=== PATIENT | male | born 2005 | race Caucasian/White ===

== ENCOUNTER 2023-10-24 10:35 | Emergency (ER) | payer SELFPAY ==
[2023-10-24 10:39] VITALS: BP 130/71; PULSE 79; TEMP 37.2; O2SAT 98; BMI 20.1
--- NOTE | 2023-10-24 10:41 | ECG_ITS ---
[facility] Test Date: 2023-10-24 Pat Name: Paresh Hoffmann Department: Room: - Gender: Male [employer] Operator: : 2005 Requested By: [id number] Order Number: [id number] Reading MD: PARESH MENEZES Measurements Intervals [place] Rate: 74 P: 38 [place]: 124 QRS: 92 QRSD: 96 T: 67 QT: 360 QTc: 387 Interpretive Statements 1100 Sinus rhythm 2440 Incomplete right bundle branch block 7102 Moderate right axis deviation 9130 borderline ECG No previous ECG available for comparison Electronically Signed On 10-25-2023 5:23:42 EDT by PARESH MENEZES
[2023-10-24 10:59] LABS: Basophils Percent Auto 0.3 % (0.2-2.0); Eosinophils Percent Auto 0.5 % (0.9-7.0); Hematocrit 41.6 % (42.0-54.0); Hemoglobin 14.2 g/dL (14.0-18.0); Immature Granulocytes Abs Auto 0.01 10^3/uL (0.00-0.03); Immature Granulocytes Pct Auto 0.1 % (0.0-0.5); Lymphocytes Absolute Auto 1.5 10^3/uL (1.2-3.8); Lymphocytes Percent Auto 16.8 % (20.5-60.0); Mean Corpuscular HGB Conc 34.1 g/dL (29.9-35.2); Mean Corpuscular Hemoglobin 31.3 pg (25.9-34.0); Mean Corpuscular Volume 91.8 fL (80.0-94.0); Mean Platelet Volume 9.8 fL (9.5-13.5); Monocytes Absolute Auto 0.6 10^3/uL (0.3-0.8); Monocytes Percent Auto 6.5 % (1.7-12.0); Neutrophils Absolute Auto 6.7 10^3/uL (1.4-6.5); Neutrophils Percent Auto 75.8 % (43.0-75.0); Platelet Count 231 10^3/uL (150-450); Red Blood Count 4.53 10^6/uL (4.70-6.10); Red Cell Distribution Width 11.9 % (11.0-15.0); White Blood Count 8.8 10^3/uL (4.0-11.0)
[2023-10-24 11:15] LABS: Alanine Aminotransferase 21 U/L (16-63); Albumin Globulin Ratio 1.3; Alkaline Phosphatase 65 U/L (46-116); Anion Gap 14.8; Aspartate Amino Transferase 14 U/L (15-37); BUN Creatinine Ratio 10.3; Bilirubin Total 1.2 mg/dL (0.2-1.0); Calcium 8.7 mg/dL (8.5-10.1); Carbon Dioxide 28.7 mmol/L (21.0-32.0); Chloride 102 mmol/L (98-107); Estimated GFR (African America >60 (>=60); Estimated GFR (Non-African Ame >60 (>=60); Globulin 3.2 g/dL; Glucose 113 mg/dL (74-106); Potassium 3.5 mmol/L (3.5-5.1); Sodium 142 mmol/L (136-145); Total Protein 7.2 g/dL (6.4-8.2)
--- NOTE | 2023-10-24 12:20 | ED.GENADUL1 ---
HPI HPI - General Adult General Chief complaint: Psychiatric Symptoms Stated complaint: PSYCHIATRICS SYMPTOMS Time Seen by Provider: 10/24/23 10:41 Source: patient Mode of arrival: ambulance Limitations: no limitations History of Present Illness HPI narrative: Patient presents to ED from Home. He called EMS because he was cutting his wrists today and did not want to escalate even further. He states he is not really suicidal he just has anger issues and he has been cutting recently to help release his anger. He said he used to punch things and now he is resorted into cutting. He cut his arm and his thigh but only superficially. Bleeding is controlled. He denies any ingestion. He states he does not have any psychiatric diagnosis. He said about a year ago he tried to hang himself but the rope broke but he did not seek any care at that time. Patient states he thinks he may be bipolar but he is unsure. He said he has never been to a doctor for this. He is alert and oriented and cooperative and calm at this time. I told him most likely he will need to be admitted somewhere for further assessment and psychiatric care. He is comfortable with that plan. Related Data Allergies Allergy/AdvReac Type Severity Reaction Status Date / Time No Known Drug Allergies Allergy Verified 10/24/23 10:38 Opioid HPI Opioid Management Most Recent Opioid Data: Ur Phencyclidine Scrn Negative (NEGATIVE) 10/24/23 12:35 Review of Systems ROS Status of ROS 10 or more systems reviewed and unremarkable except as noted in history and below Exam Narrative Exam Narrative: Time Seen: [] Vital Signs: [Per nurse's notes.] General: [Alert] Skin: [Warm, dry, no rash.]Patient has superficial lacerations on his left wrist and Left thigh. Bleeding controlled nothing needs stitches Head: [Normocephalic, atraumatic.] Neck: [Supple, trachea midline.] Eye: [Pupils are equal, round and reactive to light, extraocular movements are intact, normal conjunctiva.] Ears, nose, mouth and throat: oral mucosa moist. Cardiovascular: [Regular rate and rhythm, no murmur.] Respiratory: [Lungs are clear to auscultation, respirations are non-labored, breath sounds are equal.] Chest wall: [No tenderness, no deformity.] Gastrointestinal: [Soft, nontender, non distended, normal bowel sounds.] MSK: 5 out of 5 muscle strength x 4 extremities no calf pain or edema Lymphatics: [No lymphadenopathy.] Psychiatric: [Cooperative, appropriate mood & affect. Self-harm Neurological: [Alert and oriented to person, place, time, and situation, no focal neurological deficit observed.] Constitutional Vital Signs, click to edit/add: Last Vital Signs Temp 98.9 F 10/24/23 10:39 Pulse 79 10/24/23 10:39 Resp 18 10/24/23 10:39 BP 130/71 10/24/23 10:39 Pulse Ox 98 10/24/23 10:39 O2 Del Method Room Air 10/24/23 10:39 Course Vital Signs Vital signs: Vital Signs Temperature 98.9 F 10/24/23 10:39 Pulse Rate 79 10/24/23 10:39 Respiratory Rate 18 10/24/23 10:39 Blood Pressure 130/71 10/24/23 10:39 Pulse Oximetry 98 10/24/23 10:39 Oxygen Delivery Method Room Air 10/24/23 10:39 Temperature 98.9 F 10/24/23 10:39 Pulse Rate 79 10/24/23 10:39 Respiratory Rate 18 10/24/23 10:39 Blood Pressure 130/71 10/24/23 10:39 Pulse Oximetry 98 10/24/23 10:39 Oxygen Delivery Method Room Air 10/24/23 10:39 Medical Decision Making MDM Narrative Medical decision making narrative: Labs are nonacute. COVID test negative. Vital signs stable. Patient is medically cleared for further psychiatric evaluation. He was evaluated by P and deemed that he needed to come in involuntary admit. Patient has exhibited self-harm and has previous suicide attempts and plan for future suicide attempts. Patient will be admitted to [facility] for further psychiatric evaluation. Medical Records Medical records reviewed: Yes I reviewed the patient's medical records Lab Data Lab results reviewed: Yes I reviewed the patient's lab results Labs: Lab Results 10/24/23 10/24/23 10/24/23 Range/Units 10:51 12:00 12:35 WBC 8.8 (4.0-11.0) 10^3/uL RBC 4.53 L (4.70-6.10) 10^6/uL Hgb 14.2 (14.0-18.0) g/dL Hct 41.6 L (42.0-54.0) % MCV 91.8 (80.0-94.0) fL MCH 31.3 (25.9-34.0) pg MCHC 34.1 (29.9-35.2) g/dL RDW 11.9 (11.0-15.0) % Plt Count 231 (150-450) 10^3/uL MPV 9.8 (9.5-13.5) fL Neut % (Auto) 75.8 H (43.0-75.0) % Lymph % (Auto) 16.8 L (20.5-60.0) % [place] % (Auto) 6.5 (1.7-12.0) % Eos % (Auto) 0.5 L (0.9-7.0) % Baso % (Auto) 0.3 (0.2-2.0) % Neut # (Auto) 6.7 H (1.4-6.5) 10^3/uL Lymph # (Auto) 1.5 (1.2-3.8) 10^3/uL [place] # (Auto) 0.6 (0.3-0.8) 10^3/uL Eos # (Auto) 0.0 (0.0-0.7) 10^3/uL Baso # (Auto) 0.0 (0.0-0.1) 10^3/uL Abs Immat Gran (auto) 0.01 (0.00-0.03) 10^3/uL Imm/Tot Granulo (auto) 0.1 (0.0-0.5) % Sodium 142 (136-145) mmol/L Potassium 3.5 (3.5-5.1) mmol/L Chloride 102 (98-107) mmol/L Carbon Dioxide 28.7 (21.0-32.0) mmol/L Anion Gap 14.8 BUN 9.0 (7.0-18.0) mg/dL Creatinine 0.87 (0.70-1.30) mg/dL Est GFR ( Amer) >60 (>=60) Est GFR (Non-Af Amer) >60 (>=60) BUN/Creatinine Ratio 10.3 Glucose 113 H (74-106) mg/dL Calcium 8.7 (8.5-10.1) mg/dL Total Bilirubin 1.2 H (0.2-1.0) mg/dL AST 14 L (15-37) U/L ALT 21 (16-63) U/L Alkaline Phosphatase 65 (46-116) U/L Total Protein 7.2 (6.4-8.2) g/dL Albumin 4.0 (3.4-5.0) g/dL Globulin 3.2 g/dL Albumin/Globulin Ratio 1.3 Urine Color Lt. yellow (YELLOW) Urine Clarity Clear (CLEAR) Urine pH 8.0 (5.0-9.0) Ur Specific [place] 1.015 (1.005-1.025) Urine Protein Negative (NEG/TRACE) mg/dL Urine Glucose (UA) Negative (NEGATIVE) mg/dL Urine Ketones Negative (NEGATIVE) mg/dL Urine Occult Blood Negative (NEGATIVE) Urine Nitrite Negative (NEGATIVE) Urine Bilirubin Negative (NEGATIVE) Urine Urobilinogen 0.2 (0.2-1.0) EU/dL Ur Leukocyte Esterase Negative (NEGATIVE) Urine Opiates Screen Negative (NEGATIVE) Ur Buprenorphine Scrn Negative (NEGATIVE) Ur Oxycodone Screen Negative (NEGATIVE) Urine Methadone Screen Negative (NEGATIVE) Ur Barbiturates Screen Negative (NEGATIVE) U Tricyclic Antidepress Negative (NEGATIVE) Ur Phencyclidine Scrn Negative (NEGATIVE) Ur Amphetamines Screen Negative (NEGATIVE) U Methamphetamines Scrn Negative (NEGATIVE) U Benzodiazepines Scrn Negative (NEGATIVE) Urine Cocaine Screen Negative (NEGATIVE) U Cannabinoids Screen Positive A (NEGATIVE) Ethanol Quant <3 mg/dL SARS-CoV-2 Ag (CV2AG) Negative (NEGATIVE) ECG Data Attestation: I personally reviewed and interpreted this ECG as follows: Interpretation: EKG INTERPRETATION Time: []105 Rate: []74 Rhythm: _ []Normal sinus rhythm ST segments: _ []Incomplete right bundle branch block no acute ST elevation or depression T waves: _ [] Ectopy: _ [] P wave/WI interval: _ [] QRS interval: _ [] QT interval: _ [] Comparison: _ [] Comparison EKG date: [] Performed by: [self] Discharge Plan Discharge Chief Complaint: Psychiatric Symptoms Clinical Impression: Suicidal ideation, Intentional self-harm Patient Disposition: [facility] Time of Disposition Decision: 17:52 Discharge Location: [facility] Condition: Fair Mode of Transportation: EMS Print Language: Turkish Referrals: Physician,Non-Staff, MD [Primary Care Provider] - 1 week
[2023-10-24 12:28] LABS: Internal Control Within Normal Limits; SARS-CoV-2 Ag NEGATIVE (NEGATIVE)
[2023-10-24 12:48] LABS: Bilirubin Urine NEGATIVE (NEGATIVE); Blood Urine NEGATIVE (NEGATIVE); Clarity Urine CLEAR (CLEAR); Color Urine LT. YELLOW (YELLOW); Glucose Urine UA NEGATIVE (NEGATIVE); Ketones Urine NEGATIVE (NEGATIVE); Leukocyte Esterase Urine NEGATIVE (NEGATIVE); Nitrite Urine NEGATIVE (NEGATIVE); Protein Urine NEGATIVE (NEG/TRACE); Specific Gravity Urine 1.015 (1.005-1.025); Urobilinogen Urine 0.2 EU/dL (0.2-1.0)
[2023-10-24 12:52] LABS: Urine Microscopic Indicated NO
[2023-10-24 13:03] LABS: Ethanol <3 mg/dL
[2023-10-24 13:23] LABS: Amphetamine Screen Urine NEGATIVE (NEGATIVE); Barbiturates Screen Urine NEGATIVE (NEGATIVE); Benzodiazepines Screen Urine NEGATIVE (NEGATIVE); Buprenorphine Screen Urine NEGATIVE (NEGATIVE); Cannabinoid Screen Urine POSITIVE (NEGATIVE); Cocaine Screen Urine NEGATIVE (NEGATIVE); Methadone Screen Urine NEGATIVE (NEGATIVE); Methamphetamines Screen Urine NEGATIVE (NEGATIVE); Opiate Screen Urine NEGATIVE (NEGATIVE); Oxycodone Screen Urine NEGATIVE (NEGATIVE); Phencyclidine Screen Urine NEGATIVE (NEGATIVE); Tricyclic Antidepressant Urine NEGATIVE (NEGATIVE)
--- NOTE | 2023-10-24 17:15 | PC.NURSE ---
PT REMAINS AGITATED AND STATES IF ANYONE TRIES TO TOUCH ME I WILL HURT THEM . [place] [employer] CALLED - 2 OFFICERS AND HOSPITAL SECURITY AT BEDSIDE. SISTER ALSO AT BEDSIDE. THIS RN TRYING TO REASON CALMLY WITH PATIENT, BUT NOT HELPING -- PT STILL PISSED OFF.
--- NOTE | 2023-10-24 19:00 | PC.NURSE ---
Report called to LIAM Gutierres, at [address]
--- NOTE | 2023-10-24 19:15 | PC.NURSE ---
This nurse assumes care for pt While getting report from another nurse pt is heard from across ER screaming back and forth with his sister Another nurse asked his sister to leave the room, security then shut the door Pt immediately began bouncing from wall to another and beating on the door When security opened the door pt appeared with his fists up bouncing and repeating numerous times you want some nigga, you want to go nigger before physically approaching our manager it security Jeffrey Juan RN assisted Jeffrey with the violent actions pt was presenting while this nurse got restraints Pt was placed in 4 point restraints by this nurse as well as [place] [employer] was contacted Dr. Morgan at bedside asking pt about medications pt refused any and all medications Pt's sister was escorted to waiting room Pt repeatedly yelling that he is not violent, pt states that we put him in restraints for no reason and we are making him go crazy This nurse attempted to speak calmly with pt about his pink slip and explained that this is not revokable Pt continually upset and crying
--- NOTE | 2023-10-24 19:50 | PC.NURSE ---
with the mediation from Rebel MENDEZ pt's sister and mother were brought back again to visit with pt This nurse had attempted to pull pt's family back to conference room to give them an update on the pt's condition but the pt's father became verbally threatening to this nurse making this nurse feel very uncomfortable Pt's father repeatedly stating bring me my boy, your rules are bullshit, bring me my boy, I'll take him home This nurse attempted numerous times to explain that that was not happening and the pt needed to be seen for his own good, as it is in his best interest Pt's sister repeatedly attempted to calm down her father but the father stated to this nurse just go get my boy This nurse left the room and got PD's attention, who removed the pt's father from the [facility] Pt's mother and sister were then brought back to the room, they remain at bedside with security and PD
== END 2023-10-24 20:32 ==
PROVIDERS: Emergency Medicine; Emergency Provider Internal Medicine
DX: R45.851 Suicidal ideations (principal); S61.512A Laceration without foreign body of left wrist, initial encounter; S71.112A Laceration without foreign body, left thigh, initial encounter; X78.9XXA Intentional self-harm by unspecified sharp object, initial encounter; Z20.822 Contact with and (suspected) exposure to COVID-19
CPT/HCPCS: 36415; 80053; 80307; 80320; 81003; 85025; 87811; 93005; 99285

== ENCOUNTER 2024-02-21 15:50 | Emergency (ER) | payer SELFPAY ==
[2024-02-21 16:02] VITALS: BP 119/75; PULSE 67; TEMP 36.9; O2SAT 100; BMI 20.7
--- NOTE | 2024-02-21 16:18 | ED_ITS ---
HPI HPI - General Adult General Chief complaint: Urogenital-Male Stated complaint: GENITAL Time Seen by Provider: 02/21/24 15:58 History of Present Illness HPI narrative: Presenting to the emergency department for several days of urinary symptoms. Patient states that only the end of his urine stream he notices that the tip of his urethra has a burning sensation. Patient states that he not having any urinary frequency, hematuria, urgency, dysuria, he states that right at the end he just feels like a stinging sensation right at the tip of his urethra. No penile pain, flank pain, nausea or vomiting. No lesions to the penis. Patient states that he is not concerned for sexually transmitted infections were elevated but would like to be tested and treated just in case Related Data Allergies Allergy/AdvReac Type Severity Reaction Status Date / Time No Known Drug Allergies Allergy Verified 02/21/24 16:02 Opioid HPI Opioid Management Most Recent Opioid Data: Ur Phencyclidine Scrn Negative (NEGATIVE) 10/24/23 12:35 10/07 10/30 Review of Systems ROS Narrative Negative unless otherwise stated in the HPI PFSH PFSH Social History Little interest or pleasure in doing things: not at all Feeling down, depressed, or hopeless: not at all Exam Narrative Exam Narrative: General: NAD, AAOx3, no distress Abdomen: Soft, ND/NT, no back pain, no flank pain Genital: No lesions, no lymphadenopathy, no penile discharge, normal genital exam Constitutional Vital Signs, click to edit/add: Last Vital Signs Temp 98.5 F 02/21/24 16:02 Pulse 67 02/21/24 16:02 Resp 18 02/21/24 16:02 BP 119/75 02/21/24 16:02 Pulse Ox 100 02/21/24 16:02 O2 Del Method Room Air 02/21/24 16:02 Course Vital Signs Vital signs: Vital Signs Temperature 98.5 F 02/21/24 16:02 Pulse Rate 67 02/21/24 16:02 Respiratory Rate 18 02/21/24 16:02 Blood Pressure 119/75 02/21/24 16:02 Pulse Oximetry 100 02/21/24 16:02 Oxygen Delivery Method Room Air 02/21/24 16:02 Temperature 98.5 F 02/21/24 16:02 Pulse Rate 67 02/21/24 16:02 Respiratory Rate 18 02/21/24 16:02 Blood Pressure 119/75 02/21/24 16:02 Pulse Oximetry 100 02/21/24 16:02 Oxygen Delivery Method Room Air 02/21/24 16:02 Medical Decision Making MDM Narrative Medical decision making narrative: Pt presented today for symptoms suggestive of possible sexually transmitted disease. Given the patient's presentation I discussed with the patient the rationale for empiric antiobiotics and the patient agrees with care. Patient was given ceftriaxone and doxycycline. Cultures were sent and are pending at this time. Recommend follow up with PCP for results of STI cultures but will emprically treat in ED. Advanced guidance has been given. Vss, pex is benign at this time. Pt to fu with pcp 1-2 days for reeval, rter should sx worsen, persist or become worrysome in any way. Pt expressed understanding and agreement with plan of care at this time. Will fu as planned. Pt stable for discharge. Lab Data Labs: Lab Results 02/21/24 Range/Units 16:13 Urine Color Lt. yellow (YELLOW) Urine Clarity Clear (CLEAR) Urine pH 7.0 (5.0-9.0) Ur Specific [place] 1.020 (1.005-1.025) Urine Protein Negative (NEG/TRACE) mg/dL Urine Glucose (UA) Negative (NEGATIVE) mg/dL Urine Ketones Negative (NEGATIVE) mg/dL Urine Occult Blood Negative (NEGATIVE) Urine Nitrite Negative (NEGATIVE) Urine Bilirubin Negative (NEGATIVE) Urine Urobilinogen 0.2 (0.2-1.0) EU/dL Ur Leukocyte Esterase Negative (NEGATIVE) Urine RBC 0-2 (0-2) #/HPF Urine WBC 0-2 A (NONE SEEN) #/HPF Ur Squamous Epith Cells Rare (NONE/RARE) #/LPF Urine Crystals None seen (None Seen) #/HPF Urine Bacteria Trace A (NONE SEEN) #/HPF Urine Casts None seen (NONE SEEN) #/LPF Urine Mucus None seen (NONE SEEN) Ur Culture Indicated? No Discharge Plan Discharge Chief Complaint: Urogenital-Male Clinical Impression: Dysuria Patient Disposition: Home, Self-Care Time of Disposition Decision: 16:44 Condition: Good Print Language: Montenegrin Instructions: Dysuria (ED) Additional Instructions: Follow-up with your PCP in the next 1 to 2 days. Return to the emergency department should symptoms worsen or become worrisome in any way. Referrals: Physician,Non-Staff, MD [Primary Care Provider] - 1 week
[2024-02-21 16:27] LABS: Bilirubin Urine NEGATIVE (NEGATIVE); Blood Urine NEGATIVE (NEGATIVE); Clarity Urine CLEAR (CLEAR); Color Urine LT. YELLOW (YELLOW); Glucose Urine UA NEGATIVE (NEGATIVE); Ketones Urine NEGATIVE (NEGATIVE); Leukocyte Esterase Urine NEGATIVE (NEGATIVE); Nitrite Urine NEGATIVE (NEGATIVE); Protein Urine NEGATIVE (NEG/TRACE); Urobilinogen Urine 0.2 EU/dL (0.2-1.0)
[2024-02-21 16:35] LABS: Bacteria Urine TRACE #/HPF (NONE SEEN); Cast Seen? NONE SEEN #/LPF (NONE SEEN); Crystals Seen? None Seen #/HPF (None Seen); Mucus Urine NONE SEEN (NONE SEEN); RBC Urine 0-2 #/HPF (0-2); Squamous Epithelial Cell Urine RARE #/LPF (NONE/RARE); Urine Culture Indicated NO; WBC Urine 0-2 #/HPF (NONE SEEN)
[2024-02-21] MEDS: DOXYCYCLINE MONOHYDRATE 100 MG CAPSULE PO (17:01)
[2024-02-21] MEDS: CEFTRIAXONE 500 MG, WATER FOR INJECTION,STERILE 1 ML IM (17:01)
[2024-02-26 04:08] LABS: Neisseria gonorrhoeae, NAA Negative (Negative)
== END 2024-02-21 17:08 | disposition home or self-care (01) ==
PROVIDERS: Emergency Provider Emergency Medicine
DX: R30.0 Dysuria (principal)
CPT/HCPCS: 81001; 87491; 87591; 96372; 99285; J0696